=== PATIENT | male | born 1960 | race Caucasian/White ===

== ENCOUNTER 2018-11-28 13:50 | Day surgery (SDC) | payer BC ==
[~2018-11-28] VITALS: Ht 177.8 cm; Wt 110.0 kg
[~2018-11-28 13:50] MED LIST: ACET325 PO; ACIDOPHILUS1 EAC2 PO; ASCO500 PO; Advil200 M1 PO; CALCAVITD; CEPH500; DIPH50 PO; EPIPEN0.3 MG/0.3 IM; FISH1000; FLAX PO; GLUCHON; Hair, Skin & N1 EACH PO; IBUP400; MULTI-DAY PLUS1 EAC1 PO; MULTIVITAMIN; PANT20 PO; PROBIOTIC 5 BI1 EACH PO; PROBIOTIC1 EAC1 PO; ROXICODONE5 MG PO; SILDENAFIL CIT100 MG PO; ZINC15 PO
[2018-11-28] MEDS ORDERED: ROSU5 PO (14:08)
== END 2018-11-28 16:00 | disposition home or self-care (01) ==
LOC: ORSCSDS 13:50
PROVIDERS: Surgery
PROC: 0DBP8ZX Excision of Rectum, Via Natural or Artificial Opening Endoscopic, Diagnostic (ICD-10-PCS; principal; 2018-11-28 15:00)
PROC: 0DBL8ZX Excision of Transverse Colon, Via Natural or Artificial Opening Endoscopic, Diagnostic (ICD-10-PCS; principal; 2018-11-28 15:00)
DX: Z12.11 Encounter for screening for malignant neoplasm of colon (principal); K62.1 Rectal polyp; K63.5 Polyp of colon; K64.8 Other hemorrhoids; I10 Essential (primary) hypertension
CPT/HCPCS: 88305; J7120

== ENCOUNTER → 2019-12-15 | Outpatient (CLI) | payer BC ==
[~2019-12-15] MED LIST changes: +ROSU5 PO
[2019-12-15 08:29] LABS: Source, Urine Clean Catch
[2019-12-15 12:52] LABS: Appearance, Urine Clear (Clear); Bilirubin, Urine Neg (Neg); Blood, Urine 1+ (Neg); Color, Urine Yellow (P-Yellow); Glucose Qualitative, Urine Neg (Neg); Ketones, Urine Neg (Neg); Leukocyte Esterase, Urine Neg (Neg); Nitrite, Urine Neg (Neg); Protein, Urine Neg (Neg); Urobilinogen, Urine NORM (Normal)
[2019-12-15 13:10] LABS: Bacteria Rare /hpf; Red Blood Cells, Urine 0-2 /hpf (0-2); Squamous Epithelial Cells Rare /hpf (Few); White Blood Cells, Urine 0-2 /hpf (0-5)
== END | disposition home or self-care (01) ==
LOC: LAB SHORT 08:15 → LAB 08:15
PROVIDERS: Physician Assistant Medical
DX: N39.0 Urinary tract infection, site not specified (principal)
CPT/HCPCS: 81001

== ENCOUNTER → 2020-07-28 | Outpatient (CLI) | payer BC ==
[~2020-07-28] MED LIST changes: +AMOCLA875 PO; +FAMO20 PO; +GABA300 PO; +HYDCHL12.5 PO; +LACTOBACILLUS1 EAC4 PO; +Norco 5-325 Ta1 EACH PO; +ONDA4 PO; +TADALAFIL5 M1 PO; +VALSARTAN40 MG PO
[2020-07-28 12:44] LABS: BASOPHILS ABSOLUTE AUTO 0.03 K/mm3 (0.00-0.23); BASOPHILS PERCENT AUTO 0 % (0-2); EOSINOPHILS ABSOLUTE AUTO 0.01 K/mm3 (0.00-0.68); EOSINOPHILS PERCENT AUTO 0 % (0-6); Hematocrit 40.8 % (37.0-53.0); Hemoglobin 14.4 g/dL (13.5-17.5); IMMATURE GRAN ABSOLUTE AUTO 0.01 K/mm3 (0.00-0.10); IMMATURE GRAN PERCENT AUTO 0 % (0-1); LYMPHOCYTES ABSOLUTE AUTO 0.86 K/mm3 (0.84-5.20); LYMPHOCYTES PERCENT AUTO 10 % (21-46); MONOCYTES PERCENT AUTO 6 % (4-13); Mean Corpuscular HGB Conc 35.3 g/dL (31.5-36.5); Mean Corpuscular Volume 85 fL (80-100); NEUTROPHILS ABSOLUTE AUTO 7.33 K/mm3 (1.96-9.15); NEUTROPHILS PERCENT AUTO 84 % (41-73); RDW Coefficient Variation 12.4 % (11.7-14.2); RDW Standard Deviation 38.8 fL (35.1-46.3); White Blood Cell Count 8.74 K/mm3 (4.00-11.30)
[2020-07-28 12:48] LABS: Anion Gap 8 mmol/L (6-16); Blood Urea Nitrogen 18 mg/dL (8-24); Bun/Creatinine Ratio 19.6 (12.0-20.0); CO2, Blood 29 mmol/L (21-32); Calcium, Blood 8.9 mg/dL (8.5-10.1); Chloride, Blood 102 mmol/L (98-108); Creatinine, Blood 0.92 mg/dL (0.60-1.20); Glomerular Filtration Rate >60 (60-); Glucose, Blood 140 mg/dL (70-99); Potassium, Blood 3.3 mmol/L (3.5-5.5); Sodium, Blood 139 mmol/L (136-145)
[2020-07-28 13:07] LABS: Mean Platelet Volume 10.4 fL (9.1-12.4); Platelet Count 126 K/mm3 (150-400)
[2020-07-30 16:09] LABS: CORNONAVIRUS (COVID19) CSH-NRL Negative (Negative)
== END ==
LOC: LAB EV 12:38 → LAB SHORT 12:38
PROVIDERS: Family Medicine
DX: J06.9 Acute upper respiratory infection, unspecified (principal); I22.9 Subsequent ST elevation (STEMI) myocardial infarction of unspecified site
CPT/HCPCS: 80048; 85025; U0003

== ENCOUNTER 2020-07-30 12:13 | Inpatient (IN) | payer BC ==
[~2020-07-30] VITALS: Ht 177.8 cm; Wt 117.9 kg
[~2020-07-30 12:13] MED LIST changes: -AMOCLA875 PO; -FAMO20 PO; -GABA300 PO; -HYDCHL12.5 PO; -LACTOBACILLUS1 EAC4 PO; -Norco 5-325 Ta1 EACH PO; -ONDA4 PO; -TADALAFIL5 M1 PO; -VALSARTAN40 MG PO
[2020-07-30 13:46] LABS: BASOPHILS ABSOLUTE AUTO 0.03 K/mm3 (0.00-0.23); BASOPHILS PERCENT AUTO 0 % (0-2); EOSINOPHILS ABSOLUTE AUTO 0.02 K/mm3 (0.00-0.68); EOSINOPHILS PERCENT AUTO 0 % (0-6); Hematocrit 43.9 % (37.0-53.0); Hemoglobin 14.9 g/dL (13.5-17.5); IMMATURE GRAN ABSOLUTE AUTO 0.02 K/mm3 (0.00-0.10); IMMATURE GRAN PERCENT AUTO 0 % (0-1); LYMPHOCYTES ABSOLUTE AUTO 0.94 K/mm3 (0.84-5.20); LYMPHOCYTES PERCENT AUTO 14 % (21-46); MONOCYTES ABSOLUTE AUTO 0.56 K/mm3 (0.16-1.47); MONOCYTES PERCENT AUTO 8 % (4-13); Mean Corpuscular HGB 29.4 pg (26.0-34.0); Mean Corpuscular HGB Conc 33.9 g/dL (31.5-36.5); Mean Corpuscular Volume 87 fL (80-100); Mean Platelet Volume 10.3 fL (9.1-12.4); NEUTROPHILS ABSOLUTE AUTO 5.25 K/mm3 (1.96-9.15); NEUTROPHILS PERCENT AUTO 77 % (41-73); Platelet Count 146 K/mm3 (150-400); RDW Coefficient Variation 12.4 % (11.7-14.2); RDW Standard Deviation 39.5 fL (35.1-46.3); Red Blood Cell Count 5.07 M/mm3 (4.30-5.90); White Blood Cell Count 6.82 K/mm3 (4.00-11.30)
[2020-07-30 14:07] LABS: Alanine Aminotransfer (ALT/SGP 27 U/L (12-78); Albumin, Blood 3.8 g/dL (3.4-5.0); Albumin/Globulin Ratio 0.8 (0.8-1.8); Alk Phos 49 U/L (50-136); Anion Gap 5 mmol/L (6-16); Aspartate Aminotrans (AST/SGOT 22 U/L (12-37); Bilirubin, Total 1.4 mg/dL (0.1-1.0); Blood Urea Nitrogen 14 mg/dL (8-24); Bun/Creatinine Ratio 16.9 (12.0-20.0); CO2, Blood 30 mmol/L (21-32); Calcium, Blood 9.4 mg/dL (8.5-10.1); Chloride, Blood 103 mmol/L (98-108); Creatinine, Blood 0.83 mg/dL (0.60-1.20); Globulin, Blood 4.7 g/dL (2.2-4.0); Glomerular Filtration Rate >60 (60-); Glucose, Blood 111 mg/dL (70-99); Potassium, Blood 3.1 mmol/L (3.5-5.5); Sodium, Blood 138 mmol/L (136-145); Total Protein, Blood 8.5 g/dL (6.4-8.2)
[2020-07-30] MEDS ORDERED: TADALAFIL5 M1 PO (15:58)
[2020-07-30] MEDS ORDERED: HYDCHL12.5 PO (15:58)
[2020-07-30] MEDS ORDERED: VALSARTAN40 MG PO (15:58)
[2020-07-31 05:18] LABS: BASOPHILS ABSOLUTE AUTO 0.02 K/mm3 (0.00-0.23); BASOPHILS PERCENT AUTO 0 % (0-2); EOSINOPHILS ABSOLUTE AUTO 0.07 K/mm3 (0.00-0.68); EOSINOPHILS PERCENT AUTO 1 % (0-6); Hematocrit 37.2 % (37.0-53.0); Hemoglobin 12.6 g/dL (13.5-17.5); IMMATURE GRAN ABSOLUTE AUTO 0.02 K/mm3 (0.00-0.10); IMMATURE GRAN PERCENT AUTO 0 % (0-1); LYMPHOCYTES ABSOLUTE AUTO 1.01 K/mm3 (0.84-5.20); LYMPHOCYTES PERCENT AUTO 15 % (21-46); MONOCYTES ABSOLUTE AUTO 0.65 K/mm3 (0.16-1.47); MONOCYTES PERCENT AUTO 9 % (4-13); Mean Corpuscular HGB Conc 33.9 g/dL (31.5-36.5); Mean Corpuscular Volume 86 fL (80-100); Mean Platelet Volume 10.1 fL (9.1-12.4); NEUTROPHILS ABSOLUTE AUTO 5.21 K/mm3 (1.96-9.15); NEUTROPHILS PERCENT AUTO 75 % (41-73); Platelet Count 132 K/mm3 (150-400); RDW Coefficient Variation 12.1 % (11.7-14.2); RDW Standard Deviation 38.5 fL (35.1-46.3); Red Blood Cell Count 4.34 M/mm3 (4.30-5.90); White Blood Cell Count 6.98 K/mm3 (4.00-11.30)
[2020-07-31 05:35] LABS: Alanine Aminotransfer (ALT/SGP 19 U/L (12-78); Albumin/Globulin Ratio 0.8 (0.8-1.8); Alk Phos 37 U/L (50-136); Anion Gap 7 mmol/L (6-16); Aspartate Aminotrans (AST/SGOT 16 U/L (12-37); Bilirubin, Total 1.1 mg/dL (0.1-1.0); Blood Urea Nitrogen 11 mg/dL (8-24); Bun/Creatinine Ratio 13.8 (12.0-20.0); CO2, Blood 28 mmol/L (21-32); Calcium, Blood 8.6 mg/dL (8.5-10.1); Chloride, Blood 106 mmol/L (98-108); Globulin, Blood 3.9 g/dL (2.2-4.0); Glomerular Filtration Rate >60 (60-); Glucose, Blood 153 mg/dL (70-99); Potassium, Blood 3.2 mmol/L (3.5-5.5); Sodium, Blood 141 mmol/L (136-145); Total Protein, Blood 6.9 g/dL (6.4-8.2)
--- NOTE | 2020-07-31 06:08 | NUR ---
SHIFT SUMMARY: LYNN IS A&OX4, VSS. NO ACUTE EVENTS OVERNIGHT. APAP FOR FEVER, HE DENIES PAIN. HE IS INDEPENDENT TO THE BATHROOM. DRESSING TO RIGHT PLANTAR FOOT INTACT. IV TO RIGHT HAND PATENT. HE IS TOLERATING PO INTAKE WELL. HE IS LYING IN BED WITH HIS CALL LIGHT IN REACH. HE DID STATE THAT HE WAS NOT ABLE TO SLEEP MUCH AND WOULD LIKE SOMETHING AVAILABLE FOR TOMORROW NIGHT, TO UTILIZE IF NEEDED. HE USES HIS CALL LIGHT APPROPRIATELY. WILL REPORT TO DAY SHIFT RN.
--- NOTE | 2020-07-31 16:21 | NUR ---
SHIFT SUMMARY PT HAS DONE WELL T/O SHIFT. PT HAS NOT REQUIRED ANY PAIN MEDICATION THIS SHIFT, REPORTS PAIN TOLERABLE. REDNESS/SWELLING HAS RETRACTED FROM LINES DRAWN ON R CALF/THIGH. FOOT IS STILL SWOLLEN/HOT TO TOUCH. DRESSING CHANGED BY THIS RN, C/D/I AT THIS TIME-PACKING WAS NOT REMOVED. PLAN IS TO CONTINUE WITH IV ABX.
[2020-07-31 20:05] LABS: Vancomycin, Trough 16.4 ug/mL (5.0-10.0)
[2020-08-01 05:32] LABS: BASOPHILS ABSOLUTE AUTO 0.03 K/mm3 (0.00-0.23); BASOPHILS PERCENT AUTO 1 % (0-2); EOSINOPHILS ABSOLUTE AUTO 0.19 K/mm3 (0.00-0.68); EOSINOPHILS PERCENT AUTO 4 % (0-6); Hematocrit 39.4 % (37.0-53.0); Hemoglobin 13.2 g/dL (13.5-17.5); IMMATURE GRAN ABSOLUTE AUTO 0.02 K/mm3 (0.00-0.10); IMMATURE GRAN PERCENT AUTO 0 % (0-1); LYMPHOCYTES ABSOLUTE AUTO 1.18 K/mm3 (0.84-5.20); LYMPHOCYTES PERCENT AUTO 26 % (21-46); MONOCYTES ABSOLUTE AUTO 0.44 K/mm3 (0.16-1.47); MONOCYTES PERCENT AUTO 10 % (4-13); Mean Corpuscular HGB 28.9 pg (26.0-34.0); Mean Corpuscular HGB Conc 33.5 g/dL (31.5-36.5); Mean Corpuscular Volume 86 fL (80-100); Mean Platelet Volume 10.6 fL (9.1-12.4); NEUTROPHILS ABSOLUTE AUTO 2.68 K/mm3 (1.96-9.15); NEUTROPHILS PERCENT AUTO 59 % (41-73); Platelet Count 150 K/mm3 (150-400); RDW Coefficient Variation 12.2 % (11.7-14.2); RDW Standard Deviation 39.2 fL (35.1-46.3); Red Blood Cell Count 4.56 M/mm3 (4.30-5.90); White Blood Cell Count 4.54 K/mm3 (4.00-11.30)
[2020-08-01 05:57] LABS: Alanine Aminotransfer (ALT/SGP 25 U/L (12-78); Albumin/Globulin Ratio 0.7 (0.8-1.8); Alk Phos 38 U/L (50-136); Anion Gap 6 mmol/L (6-16); Aspartate Aminotrans (AST/SGOT 16 U/L (12-37); Bilirubin, Total 0.6 mg/dL (0.1-1.0); Blood Urea Nitrogen 12 mg/dL (8-24); Bun/Creatinine Ratio 13.9 (12.0-20.0); CO2, Blood 29 mmol/L (21-32); Calcium, Blood 8.8 mg/dL (8.5-10.1); Chloride, Blood 107 mmol/L (98-108); Creatinine, Blood 0.87 mg/dL (0.60-1.20); Globulin, Blood 4.1 g/dL (2.2-4.0); Glomerular Filtration Rate >60 (60-); Glucose, Blood 114 mg/dL (70-99); Potassium, Blood 3.6 mmol/L (3.5-5.5); Sodium, Blood 142 mmol/L (136-145); Total Protein, Blood 7.1 g/dL (6.4-8.2)
--- NOTE | 2020-08-01 06:21 | NUR ---
SHIFT SUMMARY: LYNN IS A&OX4. HE IS INDEPENDENT IN THE ROOM. IV TO R HAND PATENT. HE IS TOLERATING PO INTAKE WELL. VSS, NO ACUTE EVENTS OVERNIGHT. AFEBRILE. HE DID REQUEST APAP THIS AM FOR HEADACHE. HE STATES THAT HE WAS ABLE TO SLEEP LAST NIGHT. RIGHT FOOT SWELLING IMPROVING, REDNESS DECREASING. HE USES HIS CALL LIGHT APPROPRIATELY. HE IS USING THE URINAL WITHOUT DIFFICULTY. HE IS LYING IN BED WITH HIS CALL LIGHT IN REACH. WILL REPORT TO DAY SHIFT RN.
--- NOTE | 2020-08-01 13:20 | NUR ---
SUMMARY PT HAS DONE WELL THIS AM. AFEBRILE, NO C/O PAIN. NO N/V. DRESSING TO R FOOT C/D/I. KARINA RAYMUNDOE IN PLACE LLE. PLAN IS TO CONTINUE IV ABX AND POSSIBLY DC HOME TOMORROS.
--- NOTE | 2020-08-01 15:57 | NUR ---
NO ACUTE CHANGES SINCE ASSUMING CARE. PT DENIES NEED FOR PAIN MEDICATIONS. INDEP IN ROOM. IV ABX PER ORDERS. SPOUSE AT BEDSIDE FOR SUPPORT. CALL LIGHT WITHIN REACH.
[2020-08-02 04:05] LABS: BASOPHILS ABSOLUTE AUTO 0.03 K/mm3 (0.00-0.23); BASOPHILS PERCENT AUTO 1 % (0-2); EOSINOPHILS ABSOLUTE AUTO 0.21 K/mm3 (0.00-0.68); EOSINOPHILS PERCENT AUTO 5 % (0-6); Hematocrit 38.1 % (37.0-53.0); Hemoglobin 12.3 g/dL (13.5-17.5); IMMATURE GRAN ABSOLUTE AUTO 0.01 K/mm3 (0.00-0.10); IMMATURE GRAN PERCENT AUTO 0 % (0-1); LYMPHOCYTES ABSOLUTE AUTO 1.43 K/mm3 (0.84-5.20); LYMPHOCYTES PERCENT AUTO 33 % (21-46); MONOCYTES ABSOLUTE AUTO 0.45 K/mm3 (0.16-1.47); MONOCYTES PERCENT AUTO 10 % (4-13); Mean Corpuscular HGB 28.2 pg (26.0-34.0); Mean Corpuscular HGB Conc 32.3 g/dL (31.5-36.5); Mean Corpuscular Volume 87 fL (80-100); Mean Platelet Volume 10.2 fL (9.1-12.4); NEUTROPHILS ABSOLUTE AUTO 2.23 K/mm3 (1.96-9.15); NEUTROPHILS PERCENT AUTO 51 % (41-73); Platelet Count 165 K/mm3 (150-400); RDW Coefficient Variation 11.9 % (11.7-14.2); RDW Standard Deviation 38.6 fL (35.1-46.3); Red Blood Cell Count 4.36 M/mm3 (4.30-5.90); White Blood Cell Count 4.36 K/mm3 (4.00-11.30)
[2020-08-02 04:28] LABS: Alanine Aminotransfer (ALT/SGP 29 U/L (12-78); Albumin, Blood 2.9 g/dL (3.4-5.0); Albumin/Globulin Ratio 0.8 (0.8-1.8); Alk Phos 35 U/L (50-136); Anion Gap 5 mmol/L (6-16); Aspartate Aminotrans (AST/SGOT 14 U/L (12-37); Bilirubin, Total 0.5 mg/dL (0.1-1.0); Blood Urea Nitrogen 13 mg/dL (8-24); Bun/Creatinine Ratio 15.7 (12.0-20.0); CO2, Blood 30 mmol/L (21-32); Calcium, Blood 8.4 mg/dL (8.5-10.1); Chloride, Blood 108 mmol/L (98-108); Creatinine, Blood 0.83 mg/dL (0.60-1.20); Globulin, Blood 3.8 g/dL (2.2-4.0); Glomerular Filtration Rate >60 (60-); Glucose, Blood 97 mg/dL (70-99); Potassium, Blood 3.8 mmol/L (3.5-5.5); Sodium, Blood 143 mmol/L (136-145); Total Protein, Blood 6.7 g/dL (6.4-8.2)
--- NOTE | 2020-08-02 05:03 | NUR ---
SHIFT SUMMARY PT RESTED WELL THIS AM. AAOX4. PT REPORTS DISCOMFORT AT TOLERABLE LEVEL T/O NIGHT, DENIES PAIN MEDS. NO NAUSEA/EMESIS. DRESSING TO RIGHT FOOT C/D/I. INDEPENDENT IN ROOM. IV ABX PER ORDERS. NO ACUTE CHANGES THIS SHIFT. PT CURRENTLY SITTING UP IN BED READING MAGAZINE WITH CALL LIGHT IN REACH.
[2020-08-02] MEDS ORDERED: ACET325 PO (08:19)
[2020-08-02] MEDS ORDERED: GABA300 PO (08:20)
[2020-08-02] MEDS ORDERED: Norco 5-325 Ta1 EACH PO (08:20)
[2020-08-02] MEDS ORDERED: FAMO20 PO (08:20)
[2020-08-02] MEDS ORDERED: ONDA4 PO (08:21)
[2020-08-02] MEDS ORDERED: AMOCLA875 PO (08:21)
[2020-08-02] MEDS ORDERED: LACTOBACILLUS1 EAC4 PO (08:22)
--- NOTE | 2020-08-02 09:38 | NUR ---
DENIED ANY PAIN OR ANY DISCOMFORT THIS AM, LUNGS CLEAR, HRR, ACTIVE BT'S X4, DENIES ANY LOOSE STOOLS, R FOOT DSG C/D/I, PT REPORTED TO DR. WARREN THIS AM THAT HE RESTARTED HIS "BLOOD PRESSURE" MEDICATIONS, PT STATES HE IS SUPPOSED TO SEE DR. COATES AT 11AM TODAY FOR DSG CHANGE AND INSTRUCTIONS, DC INSTRUCTIONS GIVEN, VERBALIZED UNDERSTANDING, PT DC'D HOME EARLIER THIS AM WITH .
== END 2020-08-02 09:02 | disposition home or self-care (01) | DRG 603 ==
LOC: ER 12:13 → SURS 15:13
PROVIDERS: Physician Assistant; ADMIT Family Medicine
DX: L03.115 Cellulitis of right lower limb (principal); L02.611 Cutaneous abscess of right foot; Z20.828 Contact with and (suspected) exposure to other viral communicable diseases; B95.4 Other streptococcus as the cause of diseases classified elsewhere; E78.5 Hyperlipidemia, unspecified; N52.9 Male erectile dysfunction, unspecified; L03.125 Acute lymphangitis of right lower limb; G62.9 Polyneuropathy, unspecified; E87.6 Hypokalemia; Z79.899 Other long term (current) drug therapy; Z88.1 Allergy status to other antibiotic agents; Z88.2 Allergy status to sulfonamides; Z89.412 Acquired absence of left great toe; Z89.421 Acquired absence of other right toe(s)
CPT/HCPCS: 36415; 73630; 80053; 80202; 83605; 85025; 86140; 87040; 87070; 87075; 87077; 87147; 87186; 87205; 96365-59; 96366-59; 96367-59; 99284-25; A9270; J1650; J2543; J3370; J7030; J7050; U0003

== ENCOUNTER → 2020-10-12 | Outpatient (CLI) | payer BC ==
[~2020-10-12] MED LIST changes: +AMOCLA875 PO; +FAMO20 PO; +GABA300 PO; +HYDCHL12.5 PO; +LACTOBACILLUS1 EAC4 PO; +Norco 5-325 Ta1 EACH PO; +ONDA4 PO; +TADALAFIL5 M1 PO; +VALSARTAN40 MG PO
[2020-10-12 14:07] LABS: Source, Urine Clean Catch
[2020-10-12 19:03] LABS: Appearance, Urine Clear (Clear); Bilirubin, Urine Neg (Neg); Blood, Urine 2+ (Neg); Color, Urine Yellow (P-Yellow); Glucose Qualitative, Urine Neg (Neg); Ketones, Urine Neg (Neg); Leukocyte Esterase, Urine Neg (Neg); Nitrite, Urine Neg (Neg); Protein, Urine Neg (Neg); Urobilinogen, Urine NORM (Normal)
[2020-10-12 19:13] LABS: Bacteria Rare /hpf; Red Blood Cells, Urine 0-2 /hpf (0-2); Squamous Epithelial Cells Rare /hpf (Few); White Blood Cells, Urine 0-2 /hpf (0-5)
== END | disposition home or self-care (01) ==
LOC: LAB 14:05 → LAB SHORT 14:05
PROVIDERS: Physician Assistant Medical
DX: E03.9 Hypothyroidism, unspecified (principal); E78.2 Mixed hyperlipidemia; I10 Essential (primary) hypertension; N39.0 Urinary tract infection, site not specified; N40.0 Benign prostatic hyperplasia without lower urinary tract symptoms; R73.09 Other abnormal glucose
CPT/HCPCS: 81001

== ENCOUNTER 2023-11-08 10:49 | Day surgery (SDC) | payer MEDICARE, OTHER ==
[~2023-11-08] VITALS: Ht 180.3 cm; Wt 113.7 kg
[~2023-11-08 10:49] MED LIST changes: +ARGININE; +AZIT250; +Cialis5 MG; +DICLOFENAC SODI50 GM TOP; +ROSU5; +TAMS.4ER
[2023-11-08] MEDS ORDERED: TELM40 PO (11:09)
--- NOTE | 2023-11-08 11:25 | NUR ---
11/08/23 1125 JAMARI NICOLE AT BEDSIDE, CALL LIGHT WITHIN REACH. ALL QUESTIONS ASKED AND ANSWERED
[2023-11-08 13:17] VITALS: BP 148/68
== END 2023-11-08 13:14 | disposition home or self-care (01) ==
LOC: ORSCSDS 10:49
PROVIDERS: Podiatrist
PROC: 0JBQ0ZZ Excision of Right Foot Subcutaneous Tissue and Fascia, Open Approach (ICD-10-PCS; principal; 2023-11-08 12:00)
DX: L97.512 Non-pressure chronic ulcer of other part of right foot with fat layer exposed (principal); M14.671 Charcot's joint, right ankle and foot; I10 Essential (primary) hypertension; E78.00 Pure hypercholesterolemia, unspecified; Z79.899 Other long term (current) drug therapy; F17.210 Nicotine dependence, cigarettes, uncomplicated
CPT/HCPCS: C1889; J2001; J2250; J2704; J2795; J3010

== ENCOUNTER 2024-03-30 13:52 | Emergency (ER) | payer MEDICARE, OTHER ==
[~2024-03-30] VITALS: Ht 180.3 cm; Wt 117.9 kg
[~2024-03-30 13:52] MED LIST changes: +TELM40 PO
[2024-03-30 14:07] VITALS: BP 153/107
[2024-03-30] MEDS ORDERED: DiphenhydrAMINE HCl 50 MG Cap PO ONE (14:10)
[2024-03-30] MEDS ORDERED: AUVI-Q0.1 MG/0.2 IM (14:12)
== END 2024-03-30 14:41 | disposition home or self-care (01) ==
LOC: ER 13:52
DX: T63.441A Toxic effect of venom of bees, accidental (unintentional), initial encounter (principal); E78.5 Hyperlipidemia, unspecified; M86.9 Osteomyelitis, unspecified; Z79.899 Other long term (current) drug therapy; Z88.2 Allergy status to sulfonamides; Z88.4 Allergy status to anesthetic agent; Z91.030 Bee allergy status
CPT/HCPCS: 99282; A9270

== ENCOUNTER 2024-06-13 12:23 | Emergency (ER) | payer MEDICARE, OTHER ==
[~2024-06-13] VITALS: Ht 180.3 cm; Wt 115.7 kg
[~2024-06-13 12:23] MED LIST changes: +AUVI-Q0.1 MG/0.2 IM
[2024-06-13 12:42] VITALS: BP 154/97
[2024-06-13] MEDS ORDERED: DiphenhydrAMINE HCl 50 MG Cap PO ONE (12:45)
[2024-06-13] MEDS ORDERED: AUVI-Q0.1 MG/0.2 INJ (12:48)
== END 2024-06-13 13:26 | disposition home or self-care (01) ==
LOC: ER 12:23
DX: T63.441A Toxic effect of venom of bees, accidental (unintentional), initial encounter (principal); Z91.030 Bee allergy status; Z88.2 Allergy status to sulfonamides; Z88.1 Allergy status to other antibiotic agents; Z79.899 Other long term (current) drug therapy; E78.5 Hyperlipidemia, unspecified
CPT/HCPCS: 99282; A9270